=== PATIENT | female | born 1950 | race Caucasian/White ===

== ENCOUNTER 2016-09-02 11:14 | Emergency (ER) | payer MEDICAID ==
[2016-09-02 12:38] LABS: BASOPHILS 0.2 % (0-2); EOSINOPHILS 0.7 % (0-7); HEMATOCRIT 47.5 % (36.0-48.0); HEMOGLOBIN 15.8 g/dL (12-16); IMMATURE GRANULOCYTES 0.2 % (0-5); LYMPHOCYTES 15.3 % (15-50); MCH 29.8 pg (26.0-34.0); MCHC 33.3 g/dL (31.0-37.0); MCV 89.5 fL (80.0-100.0); MEAN PLATELET VOLUME 11.4 fL (7.4-10.4); MONOCYTES 5.7 % (2-11); NEUTROPHILS 77.9 % (40-80); PLATELET COUNT 255 10x3/uL (130-400); RBC 5.31 10x6/uL (4.00-5.40); RDW 14.8 % (11.5-14.5)
[2016-09-02 12:56] LABS: ALBUMIN 3.9 g/dL (3.4-5.0); ALKALINE PHOSPHATASE 125 U/L (46-116); ALT (SGPT) 20 U/L (10-68); BILIRUBIN - TOTAL 0.24 mg/dL (0.2-1.3); CALC OSMOLALITY 281 mosm/kg (275-300); CALCIUM 9.4 mg/dL (8.5-10.1); CARBON DIOXIDE 29.7 mmol/L (21.0-32.0); CHLORIDE - SERUM 106 mmol/L (98-107); CREATININE - SERUM 0.6 mg/dL (0.6-1.3); GLUCOSE 93 mg/dL (74-106); POTASSIUM - SERUM 3.8 mmol/L (3.5-5.1); PROTEIN - SERUM 7.5 g/dL (6.4-8.2); SODIUM 142 mmol/L (136-145); UREA NITROGEN 9 mg/dL (7-18); eGFR NON AFRICAN AMERICAN > 90 mL/min (90-120)
== END 2016-09-02 13:27 | disposition home or self-care (01) ==
LOC: D.ER 11:14
PROVIDERS: Emergency Medicine
DX: I10 Essential (primary) hypertension (principal)

== ENCOUNTER 2018-08-18 13:38 | Emergency (ER) | payer MEDICARE ==
[2018-08-18] MEDS ORDERED: CATAPRES0.1 MG PO (14:05)
[2018-08-18] MEDS ORDERED: PROPRANOLOL HCL20 MG PO (14:06)
[2018-08-18] MEDS ORDERED: SINGULAIR10 MG PO (14:06)
[2018-08-18] MEDS ORDERED: CALAN120 MG PO (14:06)
[2018-08-18] MEDS ORDERED: SYMBICORT 80-10.2 GM INH (14:07)
[2018-08-18] MEDS ORDERED: ALBUTEROL SULF8.5 GM INH (14:07)
[2018-08-18 14:58] LABS: BASOPHILS 0.3 % (0-2); EOSINOPHILS 1.5 % (0-7); HEMOGLOBIN 13.6 g/dL (12-16); IMMATURE GRANULOCYTES 0.1 % (0-5); LYMPHOCYTES 22.6 % (15-50); MCH 28.9 pg (26.0-34.0); MCV 85.1 fL (80.0-100.0); MEAN PLATELET VOLUME 10.3 fL (7.4-10.4); MONOCYTES 7.3 % (2-11); NEUTROPHILS 68.2 % (40-80); PLATELET COUNT 267 10x3/uL (130-400); RDW 14.5 % (11.5-14.5); WBC 6.9 10x3/uL (4.8-10.8)
[2018-08-18 15:11] LABS: ALBUMIN 3.2 g/dL (3.4-5.0); ALKALINE PHOSPHATASE 105 U/L (46-116); ALT (SGPT) 24 U/L (10-68); BILIRUBIN - TOTAL 0.35 mg/dL (0.2-1.3); CALC OSMOLALITY 275 mosm/kg (275-300); CALCIUM 8.7 mg/dL (8.5-10.1); CARBON DIOXIDE 27.3 mmol/L (21.0-32.0); CHLORIDE - SERUM 104 mmol/L (98-107); CREATININE - SERUM 0.6 mg/dL (0.6-1.3); GLUCOSE 103 mg/dL (74-106); POTASSIUM - SERUM 3.8 mmol/L (3.5-5.1); PROTEIN - SERUM 6.8 g/dL (6.4-8.2); SODIUM 139 mmol/L (136-145); UREA NITROGEN 8 mg/dL (7-18); eGFR NON AFRICAN AMERICAN > 90 mL/min (90-120)
[2018-08-18 15:19] LABS: PRO BNP 552 pg/mL (0-125)
[2018-08-18] MEDS ORDERED: BENICAR HCT 201 EAC1 PO (15:35)
[2018-08-18] MEDS ORDERED: NORVASC5 MG PO (15:45)
== END 2018-08-18 17:29 | disposition home or self-care (01) ==
LOC: D.ER 13:38
PROVIDERS: Emergency Medicine
DX: I10 Essential (primary) hypertension (principal); J44.9 Chronic obstructive pulmonary disease, unspecified; F19.939 Other psychoactive substance use, unspecified with withdrawal, unspecified; R00.1 Bradycardia, unspecified

== ENCOUNTER 2018-09-27 12:25 | Emergency (ER) | payer MEDICARE ==
[~2018-09-27] VITALS: Ht 170.2 cm; Wt 52.3 kg
[~2018-09-27 12:25] MED LIST: ALBUTEROL SULF8.5 GM INH; BENICAR HCT 201 EAC1 PO; CALAN120 MG PO; CATAPRES0.1 MG PO; NORVASC5 MG PO; PROPRANOLOL HCL20 MG PO; SINGULAIR10 MG PO; SYMBICORT 80-10.2 GM INH
[2018-09-27 12:37] VITALS: Ht 170.2 cm; Wt 52.3 kg
[2018-09-27] MEDS ORDERED: NORVASC10 MG PO (12:47)
[2018-09-27 13:49] LABS: BASOPHILS 0.4 % (0-2); EOSINOPHILS 0.7 % (0-7); HEMATOCRIT 41.9 % (36.0-48.0); HEMOGLOBIN 14.3 g/dL (12-16); LYMPHOCYTES 17.7 % (15-50); MCH 28.8 pg (26.0-34.0); MCHC 34.1 g/dL (31.0-37.0); MCV 84.5 fL (80.0-100.0); MEAN PLATELET VOLUME 10.8 fL (7.4-10.4); MONOCYTES 10.1 % (2-11); NEUTROPHILS 71.1 % (40-80); PLATELET COUNT 262 10x3/uL (130-400); RBC 4.96 10x6/uL (4.00-5.40); RDW 14.7 % (11.5-14.5); WBC 5.6 10x3/uL (4.8-10.8)
[2018-09-27 14:01] LABS: ALBUMIN 3.5 g/dL (3.4-5.0); ALKALINE PHOSPHATASE 106 U/L (46-116); ALT (SGPT) 17 U/L (10-68); BILIRUBIN - TOTAL 0.36 mg/dL (0.2-1.3); CALC OSMOLALITY 277 mosm/kg (275-300); CALCIUM 8.7 mg/dL (8.5-10.1); CARBON DIOXIDE 26.8 mmol/L (21.0-32.0); CHLORIDE - SERUM 102 mmol/L (98-107); CREATININE - SERUM 0.7 mg/dL (0.6-1.3); GLUCOSE 98 mg/dL (74-106); POTASSIUM - SERUM 3.3 mmol/L (3.5-5.1); PROTEIN - SERUM 6.9 g/dL (6.4-8.2); SODIUM 140 mmol/L (136-145); UREA NITROGEN 10 mg/dL (7-18); eGFR NON AFRICAN AMERICAN 89 mL/min (90-120)
[2018-09-27 14:04] LABS: TROPONIN-I < 0.017 ng/mL (0.000-0.060)
[2018-09-27 15:26] VITALS: BP 138/76
== END 2018-09-27 15:34 | disposition home or self-care (01) ==
LOC: D.ER 12:25
PROVIDERS: Family Medicine
DX: J44.9 Chronic obstructive pulmonary disease, unspecified (principal); I10 Essential (primary) hypertension; E87.6 Hypokalemia; I95.9 Hypotension, unspecified